=== PATIENT | male | born 1945 | race American Indian/Alaskan Native ===

== ENCOUNTER 2021-05-09 09:57 | Emergency (ER) | payer MEDICARE ==
[2021-05-09] MEDS ORDERED: ONDANSETRON 4 MG/2 ML INJ IV ONE (10:48)
[2021-05-09] MEDS ORDERED: MORPHINE 4 MG/1 ML INJ IV ONE (10:48)
[2021-05-09] MEDS ORDERED: SODIUM CHLORIDE 0.9% 1000 ML 1,000 ML IV ONE ×2 (10:48→14:26)
[2021-05-09 11:43] LABS: Hematocrit 46.3 % (35.5-45.6); Hemoglobin 14.7 gm/dl (11.8-15.2); Mean Corpuscular HGB Conc 32 % (32-34); Mean Corpuscular Volume 98 fl (84-94); Platelet Count 187 K/mm3 (140-440); Red Blood Count 4.72 M/mm3 (3.65-5.03)
[2021-05-09 11:44] LABS: Bilirubin,Urine NEG (Negative); Blood,Urine NEG (Negative); Color,Urine Straw (Yellow); Protein,Urine <15 mg/dL mg/dL (Negative); RBC,Urine < 1.0 /HPF (0.0-6.0); Urobilinogen,Urine < 2.0 mg/dL (<2.0); WBC,Urine < 1.0 /HPF (0.0-6.0)
[2021-05-09 11:54] LABS: Albumin 4.5 g/dL (3.9-5); Calcium 10.2 mg/dL (8.4-10.2)
[2021-05-09] MEDS ORDERED: INSULIN REGULAR, HUMAN 100 UNITS/1 ML IV ONE ×2 (11:56→14:26)
[2021-05-09 12:39] LABS: Basophils % (Manual) 0 % (0.0-1.8); Eosinophils % (Manual) 0 % (0.0-4.3); Platelet Estimate Consistent w Auto; RBC Morphology Normal; Total Cells Counted 100
--- NOTE | 2021-05-09 12:43 | Emergency Department Report ---
ED Abdominal Pain HPI - General Chief Complaint: Abdominal Pain Stated Complaint: POST PROCEDURE, HIGH BLOOD SUGAR, HIGH BP, VOMIT Time Seen by Provider: 05/09/21 10:41 Source: patient Mode of arrival: Ambulatory Limitations: No Limitations - History of Present Illness Initial Comments: Patient is a 76-year-old male presents emergency complaints of nausea and vomiting that began yesterday. He states he is also been experiencing right lower quadrant abdominal pain. Patient states that last week he had a urologic procedure for prostate cancer. He states he just had his Ivan catheter removed this week. he states he has been urinating without difficulty. He states he supposed to begin radiation therapy for prostate cancer. He denies any fever, diarrhea, hematochezia, melena, hematemesis. States he was able to have a small bowel but this morning. he has a past medical history of hypertension and diabetes. No allergies medications Severity scale (0 -10): 3 - Related Data Home Medications Medication Instructions Recorded Confirmed Last Taken Aspirin EC [Aspirin Enteric Coated 81 mg PO QDAY 12/23/14 05/22/15 05/22/15 06:00 TAB] 81 MG Linagliptin [Tradjenta] 5 mg PO QDAY 12/23/14 05/22/15 05/22/15 06:00 5 MG Loratadine (Nf) [Claritin] 10 mg PO DAILY PRN 12/23/14 05/22/15 05/22/15 06:00 10 MG amLODIPine [Norvasc] 5 mg PO DAILY 12/23/14 05/22/15 05/22/15 06:00 5 MG Previous Rx's Medication Instructions Recorded Last Taken Type Sodium Polystyrene [Kayexalate] 15 gm PO ONCE #120 mg 05/22/15 Unknown Rx Docusate Sodium [Colace] 100 mg PO BID PRN #60 capsule 05/09/21 Unknown Rx HYDROcodone/APAP 5-325 [[place] 1 each PO Q6HR PRN #12 tablet 05/09/21 Unknown Rx 5/325] Ondansetron [Zofran Odt] 4 mg PO Q8HR PRN #10 tab.rapdis 05/09/21 Unknown Rx Allergies Allergy/AdvReac Type Severity Reaction Status Date / Time No Known Allergies Allergy Verified 12/23/14 05:47 ED Review of Systems ROS: Stated complaint: POST PROCEDURE, HIGH BLOOD SUGAR, HIGH BP, VOMIT Other details as noted in HPI Comment: All other systems reviewed and negative ED Past Medical Hx - Past Medical History Hx Hypertension: Yes Hx Diabetes: Yes Additional medical history: HIGH CHOLESTEROL - Social History Smoking Status: Never Smoker Substance Use Type: None - Medications Home Medications: Home Medications Medication Instructions Recorded Confirmed Last Taken Type Aspirin EC [Aspirin Enteric Coated 81 mg PO QDAY 12/23/14 05/22/15 05/22/15 06:00 History TAB] 81 MG Linagliptin [Tradjenta] 5 mg PO QDAY 12/23/14 05/22/15 05/22/15 06:00 History 5 MG Loratadine (Nf) [Claritin] 10 mg PO DAILY PRN 12/23/14 05/22/15 05/22/15 06:00 History 10 MG amLODIPine [Norvasc] 5 mg PO DAILY 12/23/14 05/22/15 05/22/15 06:00 History 5 MG Sodium Polystyrene [Kayexalate] 15 gm PO ONCE #120 mg 05/22/15 Unknown Rx Docusate Sodium [Colace] 100 mg PO BID PRN #60 capsule 05/09/21 Unknown Rx HYDROcodone/APAP 5-325 [[place] 1 each PO Q6HR PRN #12 tablet 05/09/21 Unknown Rx 5/325] Ondansetron [Zofran Odt] 4 mg PO Q8HR PRN #10 tab.rapdis 05/09/21 Unknown Rx ED Physical Exam - General Limitations: No Limitations General appearance: alert, in no apparent distress - Head Head exam: Present: atraumatic, normocephalic - Eye Eye exam: Present: normal appearance - ENT ENT exam: Present: mucous membranes moist - Respiratory Respiratory exam: Present: normal lung sounds bilaterally. Absent: respiratory distress, wheezes, rales, rhonchi, stridor, chest wall tenderness, accessory muscle use, decreased breath sounds, prolonged expiratory - Cardiovascular Cardiovascular Exam: Present: regular rate, normal rhythm, normal heart sounds. Absent: systolic murmur, diastolic murmur, rubs, gallop - GI/Abdominal GI/Abdominal exam: Present: soft, tenderness (RLQ), normal bowel sounds. Absent: distended, guarding, rebound, rigid - Neurological Exam Neurological exam: Present: alert, oriented X3 - Psychiatric Psychiatric exam: Present: normal affect, normal mood - Skin Skin exam: Present: warm, dry, intact ED Course Vital Signs 05/09/21 05/09/21 05/09/21 10:25 13:45 15:42 Temperature 98 F Pulse Rate 80 76 78 Respiratory 16 14 18 Rate Blood Pressure 150/70 163/76 155/72 [Right] O2 Sat by Pulse 98 98 97 Oximetry 05/09/21 17:11 Temperature Pulse Rate 79 Respiratory 14 Rate Blood Pressure 134/76 [Right] O2 Sat by Pulse 97 Oximetry ED Medical Decision Making - Lab Data Result diagrams: 05/09/21 11:03 05/09/21 11:03 Lab Results 05/09/21 05/09/21 05/09/21 Range/Units 11:03 11:03 11:03 WBC 12.0 H (4.5-11.0) K/mm3 RBC 4.72 (3.65-5.03) M/mm3 Hgb 14.7 (11.8-15.2) gm/dl Hct 46.3 H (35.5-45.6) % MCV 98 H (84-94) fl MCH 31 (28-32) pg MCHC 32 (32-34) % RDW 13.0 L (13.2-15.2) % Plt Count 187 (140-440) K/mm3 Lymph % (Auto) Maintenance Instructor [place] % (Auto) Maintenance Instructor Eos % (Auto) Maintenance Instructor Baso % (Auto) Maintenance Instructor Lymph # (Auto) Maintenance Instructor [place] # (Auto) Maintenance Instructor Eos # (Auto) Maintenance Instructor Baso # (Auto) Maintenance Instructor Add Manual Diff Complete Total Counted 100 Seg Neutrophils % Maintenance Instructor Seg Neuts % (Manual) 91.0 H (40.0-70.0) % Band Neutrophils % 0 % Lymphocytes % (Manual) 4.0 L (13.4-35.0) % Reactive Lymphs % (Man) 0 % Monocytes % (Manual) 5.0 (0.0-7.3) % Eosinophils % (Manual) 0 (0.0-4.3) % Basophils % (Manual) 0 (0.0-1.8) % Metamyelocytes % 0 % Myelocytes % 0 % Promyelocytes % 0 % Blast Cells % 0 % Nucleated RBC % Not Reportable Seg Neutrophils # Maintenance Instructor Seg Neutrophils # Man 10.9 H (1.8-7.7) K/mm3 Band Neutrophils # 0.0 K/mm3 Lymphocytes # (Manual) 0.5 L (1.2-5.4) K/mm3 Abs React Lymphs (Man) 0.0 K/mm3 Monocytes # (Manual) 0.6 (0.0-0.8) K/mm3 Eosinophils # (Manual) 0.0 (0.0-0.4) K/mm3 Basophils # (Manual) 0.0 (0.0-0.1) K/mm3 Metamyelocytes # 0.0 K/mm3 Myelocytes # 0.0 K/mm3 Promyelocytes # 0.0 K/mm3 Blast Cells # 0.0 K/mm3 WBC Morphology Not Reportable Hypersegmented Neuts Not Reportable Hyposegmented Neuts Not Reportable Hypogranular Neuts Not Reportable Smudge Cells Not Reportable Toxic Granulation Not Reportable Toxic Vacuolation Not Reportable Dohle Bodies Not Reportable Pelger-Huet Anomaly Not Reportable Vicente Rods Not Reportable Platelet Estimate Consistent w auto Clumped Platelets Not Reportable Plt Clumps, EDTA Not Reportable Large Platelets Not Reportable Giant Platelets Not Reportable Platelet Satelliting Not Reportable Plt Morphology Comment Not Reportable RBC Morphology Normal Dimorphic RBCs Not Reportable Polychromasia Not Reportable Hypochromasia Not Reportable Poikilocytosis Not Reportable Anisocytosis Not Reportable Microcytosis Not Reportable Macrocytosis Not Reportable Spherocytes Not Reportable Pappenheimer Bodies Not Reportable Sickle Cells Not Reportable Target Cells Not Reportable Tear Drop Cells Not Reportable Ovalocytes Not Reportable Helmet Cells Not Reportable [facility] Bodies Not Reportable [place] Rings Not Reportable [place] Cells Not Reportable Bite Cells Not Reportable Crenated Cell Not Reportable Elliptocytes Not Reportable Acanthocytes (Spur) Not Reportable Rouleaux Not Reportable Hemoglobin C Crystals Not Reportable Schistocytes Not Reportable Malaria parasites Not Reportable Giorgi Bodies Not Reportable Hem Pathologist Commnt No VBG pH 7.333 (7.320-7.420) Sodium 140 (137-145) mmol/L Potassium 5.2 H (3.6-5.0) mmol/L Chloride 99.6 (98-107) mmol/L Carbon Dioxide 24 (22-30) mmol/L Anion Gap 22 mmol/L BUN 26 H (9-20) mg/dL Creatinine 1.7 H (0.8-1.3) mg/dL Estimated GFR 48 ml/min BUN/Creatinine Ratio 15 % Glucose 482 H (75-100) mg/dL POC Glucose (70-105) mg/dL Calcium 10.2 (8.4-10.2) mg/dL Total Bilirubin 0.60 (0.1-1.2) mg/dL AST 17 (5-40) units/L ALT 30 (7-56) units/L Alkaline Phosphatase 101 (35-129) units/L Total Protein 7.8 (6.3-8.2) g/dL Albumin 4.5 (3.9-5) g/dL Albumin/Globulin Ratio 1.4 % Lipase 35 (13-60) units/L Urine Color (Yellow) Urine Turbidity (Clear) Urine pH (5.0-7.0) Ur Specific Petros (1.003-1.030) Urine Protein (Negative) mg/dL Urine Glucose (UA) (Negative) mg/dL Urine Ketones (Negative) mg/dL Urine Blood (Negative) Urine Nitrite (Negative) Urine Bilirubin (Negative) Urine Urobilinogen (<2.0) mg/dL Ur Leukocyte Esterase (Negative) Urine WBC (Auto) (0.0-6.0) /HPF Urine RBC (Auto) (0.0-6.0) /HPF U Epithel Cells (Auto) (0-13.0) /HPF 05/09/21 05/09/21 05/09/21 Range/Units 14:17 16:42 Unknown WBC (4.5-11.0) K/mm3 RBC (3.65-5.03) M/mm3 Hgb (11.8-15.2) gm/dl Hct (35.5-45.6) % MCV (84-94) fl MCH (28-32) pg MCHC (32-34) % RDW (13.2-15.2) % Plt Count (140-440) K/mm3 Lymph % (Auto) [place] % (Auto) Eos % (Auto) Baso % (Auto) Lymph # (Auto) [place] # (Auto) Eos # (Auto) Baso # (Auto) Add Manual Diff Total Counted Seg Neutrophils % Seg Neuts % (Manual) (40.0-70.0) % Band Neutrophils % % Lymphocytes % (Manual) (13.4-35.0) % Reactive Lymphs % (Man) % Monocytes % (Manual) (0.0-7.3) % Eosinophils % (Manual) (0.0-4.3) % Basophils % (Manual) (0.0-1.8) % Metamyelocytes % % Myelocytes % % Promyelocytes % % Blast Cells % % Nucleated RBC % Seg Neutrophils # Seg Neutrophils # Man (1.8-7.7) K/mm3 Band Neutrophils # K/mm3 Lymphocytes # (Manual) (1.2-5.4) K/mm3 Abs React Lymphs (Man) K/mm3 Monocytes # (Manual) (0.0-0.8) K/mm3 Eosinophils # (Manual) (0.0-0.4) K/mm3 Basophils # (Manual) (0.0-0.1) K/mm3 Metamyelocytes # K/mm3 Myelocytes # K/mm3 Promyelocytes # K/mm3 Blast Cells # K/mm3 WBC Morphology Hypersegmented Neuts Hyposegmented Neuts Hypogranular Neuts Smudge Cells Toxic Granulation Toxic Vacuolation Dohle Bodies Pelger-Huet Anomaly Vicente Rods Platelet Estimate Clumped Platelets Plt Clumps, EDTA Large Platelets Giant Platelets Platelet Satelliting Plt Morphology Comment RBC Morphology Dimorphic RBCs Polychromasia Hypochromasia Poikilocytosis Anisocytosis Microcytosis Macrocytosis Spherocytes Pappenheimer Bodies Sickle Cells Target Cells Tear Drop Cells Ovalocytes Helmet Cells [facility] Bodies [place] Rings [place] Cells Bite Cells Crenated Cell Elliptocytes Acanthocytes (Spur) Rouleaux Hemoglobin C Crystals Schistocytes Malaria parasites Giorgi Bodies Hem Pathologist Commnt VBG pH (7.320-7.420) Sodium (137-145) mmol/L Potassium (3.6-5.0) mmol/L Chloride (98-107) mmol/L Carbon Dioxide (22-30) mmol/L Anion Gap mmol/L BUN (9-20) mg/dL Creatinine (0.8-1.3) mg/dL Estimated GFR ml/min BUN/Creatinine Ratio % Glucose (75-100) mg/dL POC Glucose 425 H 229 H (70-105) mg/dL Calcium (8.4-10.2) mg/dL Total Bilirubin (0.1-1.2) mg/dL AST (5-40) units/L ALT (7-56) units/L Alkaline Phosphatase (35-129) units/L Total Protein (6.3-8.2) g/dL Albumin (3.9-5) g/dL Albumin/Globulin Ratio % Lipase (13-60) units/L Urine Color Straw (Yellow) Urine Turbidity Clear (Clear) Urine pH 6.0 (5.0-7.0) Ur Specific Petros 1.018 (1.003-1.030) Urine Protein <15 mg/dl (Negative) mg/dL Urine Glucose (UA) >=500 (Negative) mg/dL Urine Ketones Tr (Negative) mg/dL Urine Blood Neg (Negative) Urine Nitrite Neg (Negative) Urine Bilirubin Neg (Negative) Urine Urobilinogen < 2.0 (<2.0) mg/dL Ur Leukocyte Esterase Neg (Negative) Urine WBC (Auto) < 1.0 (0.0-6.0) /HPF Urine RBC (Auto) < 1.0 (0.0-6.0) /HPF U Epithel Cells (Auto) < 1.0 (0-13.0) /HPF - Radiology Data Radiology results: report reviewed Ordering Physician: BALWINDER GALLEGOS Date of Service: 05/09/21 Procedure(s): CT abdomen pelvis w con Accession Number(s): [id number] cc: BALWINDER GALLEGOS CT ABDOMEN AND PELVIS WITH CONTRAST INDICATION / CLINICAL INFORMATION: RLQ pain, n/v, recent dx of prostate CA OMNI 300 10 ML. TECHNIQUE: Axial CT images were obtained through the abdomen and pelvis after 100 cc of Omnipaque 300 IV contrast. Sagittal and coronal reformatted images. All CT scans at this location are performed using CT dose reduction for ALARA by means of automated exposure control. COMPARISON: None available. FINDINGS: LOWER CHEST: No significant abnormality. LIVER: No significant abnormality. GALLBLADDER: No significant abnormality. BILE DUCTS: No significant abnormality. PANCREAS: No significant abnormality. SPLEEN: No significant abnormality. ADRENALS: Normal right adrenal gland. A 1.6 cm low density left adrenal nodule is identified which probably represents an adenoma. RIGHT KIDNEY and URETER: No significant abnormality. LEFT KIDNEY and URETER: No significant abnormality. Mild anterior rotation of the left kidney is noted. STOMACH and SMALL BOWEL: No significant abnormality. COLON: There is moderate fecal retention in the proximal colon, otherwise unremarkable. APPENDIX: No significant abnormality. PERITONEUM: No free fluid. No free air. No fluid collection. LYMPH NODES: No significant adenopathy. AORTA and ARTERIES: No significant abnormality. IVC and VEINS: No significant abnormality. URINARY BLADDER: The bladder is moderately distended. No wall abnormality or filling defect. REPRODUCTIVE ORGANS: Mild prostatomegaly. ADDITIONAL FINDINGS: None. SKELETAL SYSTEM: Mild lumbar spondylosis. No suspicious bony lesion is detected. IMPRESSION: No acute inflammatory process is appreciated. Distended bladder. Correlate for bladder outlet obstruction. 1.6 cm left adrenal nodule which is incompletely evaluated on single contrast exam. This probably represents an incidental adenoma. Consider noncontrast CT or MRI adrenal protocol if further evaluation is needed. Mild fecal retention in the right hemicolon. Signer Name: Michael Lenz Jr, MD Signed: 05/09/2021 1:19 PM Workstation Name: [id number] Transcribed By: TTR Dictated By: MICHAEL LENZ JR, MD Electronically Authenticated By: MICHAEL LENZ JR, MD Signed Date/Time: 05/09/21 1319 DD/ 1315 TD/TT: - Medical Decision Making Patient is a 76-year-old male presents emergency complaints of nausea and vomiting that began yesterday. He states he is also been experiencing right lower quadrant abdominal pain. Patient states that last week he had a urologic procedure for prostate cancer. He states he just had his Ivan catheter removed this week. he states he has been urinating without difficulty. He states he supposed to begin radiation therapy for prostate cancer. He denies any fever, diarrhea, hematochezia, melena, hematemesis. States he was able to have a small bowel but this morning. he has a past medical history of hypertension and diabetes. No allergies medications. Vitals are stable. Patient has right lower quadrant tenderness, no guarding, no rebound, no rigidity, no peritoneal signs. Labs significant for mild leukocytosis at 12,000, renal dysfunction which appears slightly worse from previous, mildly elevated potassium, hype rglycemia 482. Venous pH is normal, no significant ketones in urine. Patient given IV fluids, morphine, Zofran, IV insulin. On reexamination patient is feeling much better and ready to go home. He states he has been able to urinate in the emergency department without any difficulty. CT abdomen pelvis with IV contrast No acute inflammatory process is appreciated. Distended bladder. Correlate for bladder outlet obstruction. 1.6 cm left adrenal nodule which is incompletely evaluated on single contrast exam. This probably represents an incidental adenoma. Consider noncontrast CT or MRI adrenal protocol if further evaluation is needed. Mild fecal retention in the right hemicolon. Patient's blood glucose improved to 229. Discussed all findings with patient answer questions. Discussed the importance of outpatient follow-up. Discussed very strict return precautions. Advised patient Take medication as prescribed. Follow-up with your doctor. Return to emergency room for any new or worsening symptoms Critical care attestation.: If time is entered above; I have spent that time in minutes in the direct care of this critically ill patient, excluding procedure time. ED Disposition Clinical Impression: Hyperglycemia, Distended bladder, Adrenal nodule Nausea & vomiting Qualifiers: Vomiting type: unspecified Qualified Code(s): R11.2 - Nausea with vomiting, unspecified Abdominal pain Qualifiers: Abdominal location: right lower quadrant Qualified Code(s): R10.31 - Right lower quadrant pain CKD (chronic kidney disease) Qualifiers: Chronic kidney disease stage: unspecified stage Qualified Code(s): N18.9 - Chronic kidney disease, unspecified Constipation Qualifiers: Constipation type: unspecified constipation type Qualified Code(s): K59.00 - Constipation, unspecified Disposition: 01 HOME / SELF CARE / HOMELESS Is pt being admited?: No Does the pt Need Aspirin: No Condition: Stable Instructions: Nausea and Vomiting, Adult, [id number], Abdominal Pain, Adult, [id number] Additional Instructions: Take medication as prescribed. Follow-up with your doctor. Return to emergency room for any new or worsening symptoms Prescriptions: Docusate Sodium [Colace] 100 mg PO BID PRN #60 capsule PRN Reason: constipation HYDROcodone/APAP 5-325 [[place] 5/325] 1 each PO Q6HR PRN #12 tablet PRN Reason: Pain , Severe (7-10) Ondansetron [Zofran Odt] 4 mg PO Q8HR PRN #10 tab.rapdis PRN Reason: nausea/vomiting Referrals: PRIMARY CARE,MD [Primary Care Provider] - 3-5 Days Time of Disposition: 13:54 Print Language: CAMEROONIAN
--- NOTE | 2021-05-09 13:23 | Cat Scan Report ---
CT ABDOMEN AND PELVIS WITH CONTRAST INDICATION / CLINICAL INFORMATION: RLQ pain, n/v, recent dx of prostate CA OMNI 300 10 ML. TECHNIQUE: Axial CT images were obtained through the abdomen and pelvis after 100 cc of Omnipaque 300 IV contras t. Sagittal and coronal reformatted images. All CT scans at this location are performed using CT dose reduction for ALARA by means of automated exposure control. COMPARISON: None available. FINDINGS: LOWER CHEST: No significant abnormality. LIVER: No significant abnormality. GALLBLADDER: No significant abnormality. BILE DUCTS: No significant abnormality. PANCREAS: No significant abnormality. SPLEEN: No significant abnormality. ADRENALS: Normal right adrenal gland. A 1.6 cm low density left adrenal nodule is identified which pr obably represents an adenoma. RIGHT KIDNEY and URETER: No significant abnormality. LEFT KIDNEY and URETER: No significant abnormality. Mild anterior rotation of the left kidney is note d. STOMACH and SMALL BOWEL: No significant abnormality. COLON: There is moderate fecal retention in the proximal colon, otherwise unremarkable. APPENDIX: No significant abnormality. PERITONEUM: No free fluid. No free air. No fluid collection. LYMPH NODES: No significant adenopathy. AORTA and ARTERIES: No significant abnormality. IVC and VEINS: No significant abnormality. URINARY BLADDER: The bladder is moderately distended. No wall abnormality or filling defect. REPRODUCTIVE ORGANS: Mild prostatomegaly. ADDITIONAL FINDINGS: None. SKELETAL SYSTEM: Mild lumbar spondylosis. No suspicious bony lesion is detected. IMPRESSION: No acute inflammatory process is appreciated. Distended bladder. Correlate for bladder outlet obstruction. 1.6 cm left adrenal nodule which is incompletely evaluated on single contrast exam. This probably rep resents an incidental adenoma. Consider noncontrast CT or MRI adrenal protocol if further evaluation is needed. Mild fecal retention in the right hemicolon. Signer Name: Michael Lenz Jr, MD Signed: 05/09/2021 1:19 PM Workstation Name: [id number]
[2021-05-09 17:12] VITALS: BP 134/76
== END 2021-05-09 17:23 | disposition home or self-care (01) ==
LOC: ED 09:57
DX: E11.65 Type 2 diabetes mellitus with hyperglycemia (principal); R11.2 Nausea with vomiting, unspecified; R10.31 Right lower quadrant pain; N18.9 Chronic kidney disease, unspecified; K59.00 Constipation, unspecified; I10 Essential (primary) hypertension
CPT/HCPCS: 36415; 74177; 80053; 81001; 82805; 82962; 83690; 85007; 85025; 96361; 96374; 96375; 96376; 99284; J2270; J2405; J7030; Q9967; Q0162; J1815